=== PATIENT | male | born 1955 | race Hispanic/Latino ===

== ENCOUNTER 2019-10-21 14:47 | Inpatient (IN) | payer MEDICARE, MEDICAID ==
[~2019-10-21 14:47] MED LIST: Iopamidol-370 76% 500 ML 1 ML ONE
--- NOTE | 2019-10-21 14:59 | CT ---
Exam: CT brain PROVIDED CLINICAL HISTORY: Left-sided weakness COMPARISON: None FINDINGS: The ventricular system is normal in size and morphology. No evidence for intracranial hemorrhage or mass effect. Age-indeterminate lacunar infarction left ledesma radiata. The extracranial soft tissues and osseous structures demonstrate no evidence for an acute abnormality. IMPRESSION: No evidence for intracranial hemorrhage or mass effect. Findings discussed with the referring clinici salma 2:56 PM 10/21/2019.
[2019-10-21 15:04] LABS: #Basophils 0.1 thou/uL (0.0-0.2); #Eosinphils 0.2 thou/uL (0.0-0.7); #Lymphocytes 2.4 thou/uL (1.20-3.40); #Monocytes 0.7 thou/uL (0.11-0.59); #Neutrophils 4.4 thou/uL (1.40-6.50); %Basophils 0.7 % (0.0-1.0); %Eosinophils 2.7 % (0.0-10.0); %Lymphocytes 31.3 % (21.0-51.0); %Monocytes 8.9 % (0.0-10.0); %Neutrophils 56.5 % (42.0-75.0); Hemoglobin 13.7 g/dL (14.0-18.0); Mean Corpuscular HGB CONC 34.3 g/dL (32.0-36.0); Mean Corpuscular Hemoglobin 31.7 pg (27.0-31.0); Mean Corpuscular Volume 92.5 fL (78.0-98.0); Mean Platelet Volume 9.3 fL (7.4-10.4); Platelet Count 252 thou/uL (130-400); RBC Distribution Width 12.3 % (11.5-14.5); Red Blood Cell (RBC) Count 4.34 mill/uL (4.70-6.10); White Blood Cell (WBC) Count 7.8 thou/uL (4.8-10.8)
[2019-10-21 15:11] LABS: PTT 36.4 SEC (22.9-36.1); Prothrombin Time 13.2 sec (12.0-14.7)
[2019-10-21] MEDS ORDERED: Labetalol HCl 100 MG/20 ML VIAL ONE ×2 (15:11→15:36)
--- NOTE | 2019-10-21 15:15 | CT ---
EXAM: CT angiogram great vessels neck with IV contrast and three-dimensional reconstructions CT angiogram brain with IV contrast and three-dimensional reconstructions PROVIDED CLINICAL HISTORY: Left-sided weakness COMPARISON: None FINDINGS: There is a normal three-vessel configuration of the great vessels at the arch. The common carotid, internal carotid, subclavian and vertebral arteries demonstrate no evidence for s ignificant stenosis. There is a focal, moderate weblike stenosis involving the distal left M1 segment. There is no additio nal evidence for focal vessel stenosis, branch occlusion or aneurysm involving the intracranial circulation. IMPRESSION: Focal moderate weblike stenosis involving the distal left M1 segment. No large vessel occlusion. No s ignificant stenosis involving great vessels of the neck.
[2019-10-21 15:19] LABS: ALT (SGPT) 23 U/L (8-55); AST (SGOT) 11 U/L (5-34); Albumin 3.9 g/dL (3.4-4.8); Alkaline Phosphatase 68 U/L (40-110); Anion Gap 14 mmol/L (10-20); BUN (Urea Nitrogen) 31 mg/dL (8.4-25.7); Bilirubin, Total 0.6 mg/dL (0.2-1.2); Calc. Creatinine Clearance 0 mL/min (70-130); Calcium 9.2 mg/dL (7.8-10.44); Carbon Dioxide 25 mmol/L (23-31); Chloride 105 mmol/L (98-107); Estimated GFR-MDRD 44; Globulin 3.3 g/dL (2.4-3.5); Glucose 147 mg/dL (80-115); Potassium 4.2 mmol/L (3.5-5.1); Protein, Total 7.2 g/dL (5.8-8.1); Sodium 141 mmol/L (136-145)
--- NOTE | 2019-10-21 15:23 | RAD ---
EXAM: XR Chest 1 View Portable PROVIDED CLINICAL HISTORY: Weakness COMPARISON: None FINDINGS: Evaluation is limited by patient body habitus and portable technique. Elevation of the right hemidiap hragm of unknown chronicity. Enlargement of the cardiac silhouette. Atherosclerosis. Poor visualization of left hemidiaphragm. No evidence for pneumothorax. Right lung appears grossly clear. IMPRESSION: Cardiomegaly and atherosclerosis with possible left basilar pleural and/or parenchymal opacity.
[2019-10-21] MEDS ORDERED: niCARdipine 20MG In NaCl 20 MG/200 ML BAG ONE (16:16)
[2019-10-21] MEDS ORDERED: niCARdipine 25 MG in Sodium Chloride 0.9% 250 ML 250 ML IVPB PRN ×3 (17:45→19:53)
--- NOTE | 2019-10-21 17:48 | PDOC.HHP ---
Hospitalist HPI - History of Present Illness left sided weakness/slurred speech History of Present Illness: This is a 64 year old male with past medical history of diabetes, hypertension, who presented to the ER with slurred speech and arm weakness. Patient does not remember what happened today or why he came to the hospital. History was obtained from the daughter. The daughter states that she saw the patient walking in his room and then she noticed his speech became slurred and he was holding his left shoulder. They tried to ask if he was in pain but he did not answer and told his family members not to worry and it will go away. They reported some left sided weakness. Symptoms started around 1:30 pm. She stated that he was not confused and was oriented until EMS came. The patient denies any headaches but states that his left hand is numb. He does not know when this started. He denies blurry vision. Patient complains of burning with urination and having to pee every 15 minutes and is requesting a catheter. Per daughter patient is supposed to get prostate surgery on Wednesday. According to the daughter patient saw his artificial log machine operator Dr. Lui on Wednesday and and he was told he needed to resume his lipitor so she believes he probably was not compliant with his medications. ED Course: Patient presented with a BP of 210/140. He was noted by EMS to have facial droop and left arm weakness. He was given TPA in the emergency room due to NIH scale of 12. After TPA he was noted to have some improvement in his weakness and less confusion per ED staff. CT head showed no acute disease. CTA showed stenosis in the M1 segment. Patient was noted to have TITUS with creatinine of 1.58. Troponin was 0.044, CKMB negative. EKG showed some new T wave inversions per ED staff but I do not have access to it. Hospitalist ROS - Review of Systems Constitutional: denies: fever, chills - Medication Medications: Metformin 1000 mg bid Benzonatate 200 mg tid prn for cough Lipitor 10 mg daily Oxybutynin 5 mg bid Glipizide XL 10 mg tablet bid Carvedilol 25 mg bid Celebrex 200 mg 1 tablet daily Losartan 50 mg bid Hospitalist History - Past Medical History Endocrine: reports: Diabetes - Past Surgical History Past Surgical History: reports: no pertinent history - Family History Other Family History: unknown - Social History Smoking Status: Former smoker (Smoked for 30 years) - Exam General Appearance: NAD, awake alert Eye: PERRL, anicteric sclera Eye - other findings: possible cataract left eye, difficult to tell in right since resisted openi ENT: normocephalic atraumatic, no oropharyngeal lesions Neck: no JVD Heart: RRR, no murmur, no gallops, no rubs Respiratory: CTAB, no wheezes, no rales, no ronchi Gastrointestinal: soft, non-tender, distended Extremities: no cyanosis, no clubbing, no edema Skin: normal turgor, no lesions, no rashes Neurological: cranial nerve grossly intact Neurological - other findings: left arm and left leg Dec ROM. Poor effort with hand squeezing. Musculoskeletal: normal tone, normal strength, no muscle wasting Psychiatric: normal affect, A&O x 3 Psychiatric - other findings: Oriented to month and year Hospitalist Results - Labs Result Diagrams: 10/21/19 14:54 10/21/19 14:54 Lab results: WBC 7.8 thou/uL (4.8-10.8) 10/21/19 14:54 Hgb 13.7 g/dL (14.0-18.0) L 10/21/19 14:54 Hct 40.1 % (42.0-52.0) L 10/21/19 14:54 MCV 92.5 fL (78.0-98.0) 10/21/19 14:54 Plt Count 252 thou/uL (130-400) 10/21/19 14:54 Neutrophils % 56.5 % (42.0-75.0) 10/21/19 14:54 Sodium 141 mmol/L (136-145) 10/21/19 14:54 Potassium 4.2 mmol/L (3.5-5.1) 10/21/19 14:54 Chloride 105 mmol/L (98-107) 10/21/19 14:54 Carbon Dioxide 25 mmol/L (23-31) 10/21/19 14:54 BUN 31 mg/dL (8.4-25.7) H 10/21/19 14:54 Creatinine 1.58 mg/dL (0.7-1.3) H 10/21/19 14:54 Glucose 147 mg/dL (80-115) H 10/21/19 14:54 Calcium 9.2 mg/dL (7.8-10.44) 10/21/19 14:54 Total Bilirubin 0.6 mg/dL (0.2-1.2) 10/21/19 14:54 AST 11 U/L (5-34) 10/21/19 14:54 ALT 23 U/L (8-55) 10/21/19 14:54 Alkaline Phosphatase 68 U/L (40-110) 10/21/19 14:54 Creatine Kinase 59 U/L (30-200) 10/21/19 14:54 CK-MB (CK-2) 1.0 ng/mL (0-6.6) 10/21/19 14:54 Troponin I 0.044 ng/mL (< 0.028) H 10/21/19 14:54 Serum Total Protein 7.2 g/dL (5.8-8.1) 10/21/19 14:54 Albumin 3.9 g/dL (3.4-4.8) 10/21/19 14:54 - EKG Interpretation EKG: afib Hospitalist H&P A/P - Plan Plan: Chest X ray 10/20: cardiomegaly and atherosclerosis with left basilar pleural and parenchymal opacity CTA: focal moderate weblike stenosis involving the distal M1 segment Chest X ray: cardiomegaly and atherosclerosis with left basilar and parenchymal opacity This is a 64 year old male who presented with left sided weakness, s/p TPA #Possible stroke s/p TPA #Hypertensive emergency - CT head negative, CTA showed focal moderate weblike stenosis involving distal M1 segment. Was given TPA with improvement - will continue to monitor in ICU - maintain BP < 180/105 on nicardipine drip - PT/OT/speech - neuro consult - MRI brain, ECHO - check TSH in am - hold outpatient losartan and coreg for now #Afib #Type II NSTEMI - hold any anticoagulation for now - on coreg as outpatient, unclear if old or new - has elevated troponin and EKG changes per ED staff, will check ECO and repeat EKG tomorrow Dysuria - check UA, bladder scan - consider resuming oxybutynin if UA negative TITUS - creatinine up to 1.58. Likely from uncontrolled HTN - check UA Anemia - Hb 13.7, stable will monitor Type II Diabetes - insulin sliding scale - hold glipizide and metformin Code status: assume full code for now, no HCP on file
[2019-10-21 18:42] LABS: Troponin I 0.033 ng/mL (< 0.028)
[2019-10-21] MEDS ORDERED: Dextrose 50% Abboject 50 ML SYRINGE SLOW IVP PRN (18:44)
[2019-10-21] MEDS ORDERED: Dextrose 5% in Water 1,000 ML IV PRN (18:44)
[2019-10-21] MEDS ORDERED: Communication Order-Pharmacy FS SCH (18:59)
[2019-10-21] MEDS ORDERED: hydrALAZINE 20 MG/ML VIAL SLOW IVP PRN (18:59)
[2019-10-21] MEDS ORDERED: NO ANTITHROMBOTICS FS SCH (19:15)
[2019-10-21] MEDS ORDERED: niCARdipine 25 MG in Sodium Chloride 0.9% 250 ML 240 ML IVPB PRN (19:54)
[2019-10-21 20:30] LABS: Bacteria/HPF None Seen HPF (None Seen); RBC/HPF 0-3 HPF (0-3); Squamous Epithelial None Seen HPF (0-3); WBC/HPF 0-3 HPF (0-3)
[2019-10-21 21:44] VITALS: BMI 29.7
[2019-10-22] MEDS ORDERED: Diltiazem 125 MG in Sodium Chloride 0.9% 100 ML IVPB SCH (00:30)
[2019-10-22] MEDS ORDERED: Prevnar 13-Val Conj/PF 0.5 ML SYRINGE IM ONE (09:00)
[2019-10-22] MEDS ORDERED: Oxybutynin 5 MG TAB PO SCH (09:00)
[2019-10-22] MEDS ORDERED: Carvedilol 25 MG TAB PO SCH ×3 (09:30→23:15)
[2019-10-22] MEDS: Losartan 25 MG TAB PO SCH (10:02)
--- NOTE | 2019-10-22 11:09 | CON ---
DATE OF CONSULTATION: PRIMARY CONTINUOUS IMPROVEMENT COORDINATOR: Dr. John Lui. REASON FOR CONSULTATION: Abnormal EKG, atrial fibrillation, recent stroke. HISTORY OF PRESENT ILLNESS: Mr. Willson is a very pleasant 64-year-old gentleman. The patient recently seen in evaluated for possible upcoming surgery for enlarged prostate. The patient has had history of severe frequency and urgency. The patient came in last night with acute stroke symptoms with left-sided weakness. The patient received tPA with some improvement in his symptoms. He also had slurred speech. The patient is feeling better today, but however during this hospitalization, it has been noted that he has paroxysmal atrial fibrillation, which is a new diagnosis. No chest pain or pressure. MEDICATIONS: At home: 1. Glipizide. 2. Carvedilol. 3. Terazosin. 4. Metformin. 5. Losartan. 6. Lipitor. 7. Oxybutynin. PAST HISTORY: 1. Hypertension. 2. Diabetes. 3. Chronic kidney disease, stage I. SURGICAL HISTORY: Colonoscopy. SOCIAL HISTORY: History of smoking. Former smoker, not currently. REVIEW OF SYSTEMS: CONSTITUTIONAL: No significant weight gain or loss. VISION: No changes. HEARING: No changes. PULMONARY: No cough or wheezing. GASTROINTESTINAL: No nausea, vomiting, diarrhea. SKIN: No rashes. NEUROLOGIC: As outlined above. PHYSICAL EXAMINATION: GENERAL: This is a pleasant 64-year-old gentleman in no distress. VITAL SIGNS: Blood pressure 154/83, pulse 76, regular with frequent PACs on the monitor. NECK: Veins normal. Carotid normal upstrokes. LUNGS: Clear. CARDIAC: Normal S1, normal S2. ABDOMEN: Soft. Nontender. EXTREMITIES: Warm. There are no clubbing or cyanosis. There is no edema. The patient can move his left arm, but there is decreased paper conservator and strength. The speech appears normal at the present time. ASSESSMENT: 1. Stroke, suspect cardioembolic. 2. Diabetes. 3. Hypertension. PLAN: 1. He received tPA. 2. Consideration for anticoagulation. I would hold off for now since he received tPA, but I would suspect by tomorrow he could be anticoagulated. Dr. Lui will be here tomorrow to further address that issue. 3. Scheduled for MRI today. Certainly would not anticoagulate . There has been no evidence of any bleeding. I think if the patient did have evidence of bleeding we would certainly not anticoagulate acutely. Job ID: [id number]
--- NOTE | 2019-10-22 12:17 | MRI ---
EXAM: MRI Brain WO Con PROVIDED CLINICAL HISTORY: Left sided weakness COMPARISON: CT brain 10/21/2019 FINDINGS: The ventricular system remains normal in size and morphology. There is restricted diffusion involving the right anterior parietal region in the distribution of the posterior right MCA. There is a lacunar infarction involving the left centrum semiovale which may be subacute. Several small foci of restricted diffusion are seen in the right occipital region no additional restricted diffusion is evident. Signal alteration in the micheline compatible with chronic microvascular ischemic change. Chronic lacunar infarction right thalamus. Hypointensity on the gradient sequence involving the region of restricted diffusion involving the right parietal region may reflect petechial hemorrhage. The region al major vascular structures demonstrate appropriate flow voids. Mucus retention cyst left maxillary sinus. Extracranial soft tissues and calvarial marrow signal appear normal. IMPRESSION: 1. Recent infarction involving the posterior distribution of the right MCA with associated petechial hemorrhage. 2. Subacute lacunar infarction left centrum semiovale. 3. Small foci of acute cortical infarction are seen involving the right occipital cortex. 4. Different vascular distributions of the infarctions suggest the possibility of embolic phenomena.
--- NOTE | 2019-10-22 13:02 | PDOC.HOSPP ---
- Subjective Encounter Date: 10/22/19 Encounter Time: 11:30 Subjective: The patient states he still has some numbness on the left side. No headache or vision changes. He continues to report burning with urination and urinating every 15 minutes. He was told by his doctors there are no other medications they can give him - Objective Vital Signs & Weight: Vital Signs (12 hours) Temp Pulse Ox 10/22/19 12:00 98.7 F 10/22/19 08:00 98.5 F 99 10/22/19 04:00 98.2 F Weight Weight 185 lb 3.013 oz Most Recent Monitor Data Heart Rate from ECG 68 NIBP 161/88 NIBP BP-Mean 112 Respiration from ECG 15 SpO2 97 I&O: 10/21/19 10/22/19 10/23/19 06:59 06:59 06:59 Intake Total 114.6 170 Output Total 1450 Balance -1335.4 170 Result Diagrams: 10/21/19 14:54 10/21/19 14:54 Additional Labs: Accuchecks 10/22/19 10/21/19 10/21/19 00:05 18:03 14:53 POC Glucose 162 H 198 H 140 H Hospitalist ROS - Review of Systems Constitutional: denies: fever, chills - Medication Medications: Active Medications Generic Name Dose Route Start Last Admin Trade Name Stu PRN Reason Stop Dose Admin Diltiazem HCl 125 mg/ Sodium 125 mls @ 0 mls/hr 10/22/19 00:30 10/22/19 00:41 Chloride IVPB 125 mls INF GEOVANNI Administration Protocol Titrate Losartan Potassium 50 mg 10/22/19 09:00 10/22/19 10:02 Cozaar PO 50 mg DAILY GEOVANNI Administration Oxybutynin Chloride 5 mg 10/22/19 09:00 10/22/19 10:05 Ditropan PO 5 mg DAILY GEOVANNI Administration - Exam General Appearance: NAD, awake alert Eye: PERRL, anicteric sclera Neck: no JVD Heart: RRR, no murmur, no gallops, no rubs Respiratory: CTAB, no wheezes, no rales, no ronchi Gastrointestinal: soft, non-tender, non-distended, normal bowel sounds Extremities: no cyanosis, no clubbing, no edema Skin: normal turgor, no lesions, no rashes Neurological: cranial nerve grossly intact, no new deficit Neurological - other findings: left arm and left leg weakness while lifting. Strength equal bilaterally Musculoskeletal: normal tone, normal strength, no muscle wasting Psychiatric: normal affect, normal behavior, A&O x 3, oriented to person Hosp A/P - Plan Consults: Palliative Care MRI brain: right MCA infarct with petechial hemorrhage. Lacunar infarct left centrum semiovale. Acute cortical infarction right occipital cortex. Likely embolic Chest X ray 10/20: cardiomegaly and atherosclerosis with left basilar pleural and parenchymal opacity CTA: focal moderate weblike stenosis involving the distal M1 segment Chest X ray: cardiomegaly and atherosclerosis with left basilar and parenchymal opacity This is a 64 year old male who presented with left sided weakness, s/p TPA # Right MCA and occipital lobe embolic stroke - CT head negative, CTA showed focal moderate weblike stenosis involving distal M1 segment. Was given TPA with improvement - MRI brain shows right MCA infarct with petechial hemorrhage, acute cortical infarction right occipital lobe and lacunar infarct. Will repeat CT head this afternoon - ECHO is pending. Neurology has been consulted, pending recommendations #Hypertensive emergency - patient is off nicardipine drip. Resumed coreg and losartan - TSH Pending - patient is likely noncompliant per family #Afib - new onset #Type II NSTEMI - hold any anticoagulation for now. Cardiology has been consulted, recommending possibly starting anticoagulation tomorrow Dysuria - UA negative - on oxybutynin 5 mg bid - will try pyridium for bladder spasm - patient was scheduled for prostate surgery Wednesday. Contacted admissions advisor urologist who stated to contact Jose in am but agreed should be postponed TITUS - creatinine up to 1.58. Likely from uncontrolled HTN. Repeat BMP pending - UA unremarkable Anemia - Hb 13.7, stable will monitor Type II Diabetes - insulin sliding scale - hold glipizide and metformin
[2019-10-22] MEDS: HumaLOG 300 UNITS/3 ML VIAL SC PRN ×3 (13:54→21:33)
--- NOTE | 2019-10-22 14:16 | CT ---
Exam: CT brain PROVIDED CLINICAL HISTORY: Stroke COMPARISON: 10/21/2019 CT, 10/22/2019 MRI FINDINGS: The ventricular system is normal in size and morphology. No evidence for intracranial hemorrhage or mass effect. Interval loss of romero-white differentiation in the right parietal region compatible with recently described infarction by MRI. IMPRESSION: No evidence for intracranial hemorrhage or mass effect.
[2019-10-22] MEDS: Phenazopyridine HCl 97.5 MG TABLET PO SCH ×2 (14:24→18:38)
[2019-10-22] MEDS: Labetalol HCl 100 MG/20 ML VIAL SLOW IVP PRN ×2 (15:03→20:45)
--- NOTE | 2019-10-22 15:56 | CON ---
DATE OF CONSULTATION: 10/22/2019 NEUROLOGY CONSULTATION REASON FOR CONSULTATION: Left-sided weakness and slurred speech. HISTORY OF PRESENT ILLNESS: Mr. Todd Willson is a 64-year-old male with medical history significant for diabetes, hypertension, presents to the hospital with an episode of slurred speech and left-sided weakness. The patient does not remember the event, so history is taken from documentation of the medical records and the daughter. Per daughter , she noticed speech was slurred and he was holding his left shoulder and was somewhat confused. She recalled the symptoms started around 1:30 p.m. on 10/21/2019 and she called 911. When EMS came, he was totally alert and oriented. The patient denies nausea, vomiting, headache, dizziness, loss of vision, blurred vision, chest pain, or abdominal pain associated with the episode. He saw his talent development director, Dr. Lui on Wednesday and and was asked to resume his Lipitor. There is a concern that he may not be compliant with the medications. In the emergency room, he was given tPA. The NIH Scale was 12. There was improvement after the tPA. CT head did not show any acute intracranial pathology. CT angiogram showed stenosis in the M1 segment. MRI of the brain reviewed which was consistent with acute stroke in the right middle cerebral artery territory and also there is an occipital infarct. History and exam conducted with the help of [place] interpretor. REVIEW OF SYSTEMS: All 14 systems were reviewed and were negative except for symptoms mentioned in the HPI. PAST MEDICAL HISTORY: Diabetes, hypertension. PAST SURGICAL HISTORY: None. FAMILY HISTORY: No family history of stroke. SOCIAL HISTORY: The patient lives alone. He is a former smoker, smoked for 30 years. - Objective Vital Signs & Weight: Vital Signs (12 hours) Temp Pulse Ox 10/22/19 12:00 98.7 F 10/22/19 08:00 98.5 F 99 10/22/19 04:00 98.2 F Weight Weight 185 lb 3.013 oz Most Recent Monitor Data Heart Rate from ECG 68 NIBP 161/88 NIBP BP-Mean 112 Respiration from ECG 15 SpO2 97 I&O: 10/21/19 10/22/19 10/23/19 06:59 06:59 06:59 Intake Total 114.6 170 Output Total 1450 Balance -1335.4 170 10/21/19 14:54 Additional Labs: Accuchecks 10/22/19 10/21/19 10/21/19 00:05 18:03 14:53 POC Glucose 162 H 198 H 140 H - Medication Medications: Active Medications Generic Name Dose Route Start Last Admin Trade Name Stu PRN Reason Stop Dose Admin Diltiazem HCl 125 mg/ Sodium 125 mls @ 0 mls/hr 10/22/19 00:30 10/22/19 00:41 Chloride IVPB 125 mls INF GEVOANNI Administration Protocol Titrate Losartan Potassium 50 mg 10/22/19 09:00 10/22/19 10:02 Cozaar PO 50 mg DAILY GEOVANNI Administration Oxybutynin Chloride 5 mg 10/22/19 09:00 10/22/19 10:05 Ditropan PO 5 mg DAILY GEOVANNI Administration - Exam General Appearance: NAD, awake alert Eye: PERRL, anicteric sclera Neck: no JVD Heart: RRR, no murmur, no gallops, no rubs Respiratory: CTAB, no wheezes, no rales, no ronchi Gastrointestinal: soft, non-tender, non-distended, normal bowel sounds Extremities: no cyanosis, no clubbing, no edema Skin: normal turgor, no lesions, no rashes NEUROLOGIC: Mental status: The patient is alert and oriented to person, place, and time. Speech is clear. Cranial nerves 2 through 12 intact except dysarthria and left facial droop. Motor: Muscle tone and bulk is normal. Strength 5/5 in the right upper and lower extremities, 3/5 in the left upper and lower extremities. Cerebellar: Slow on the left secondary to weakness. Sensory: Withdraws to pinprick bilaterally, left less than right. Gait not tested because of the patient's safety reasons. ASSESSMENT AND PLAN: Mr. Todd Willson is a 64-year-old male with a right middle cerebral artery stroke, status post tPA, consulted for stroke management. MRI brain reviewed which was consistent with acute infarction in the right middle cerebral artery territory CT angiogram showed focal moderate stenosis involving the distal M1 segment. Repeat head CT did not show any acute intracranial pathology. Neuro checks every 2 hours. Maintain blood pressure less than 180 to 105. Echocardiogram was reviewed which was essentially unremarkable. CMP is unremarkable. Permissive control of blood pressure at this time. Start aspirin 24 hours post tpa and statin for secondary stroke prevention. PT/OT/speech. Continue home medications and medical management per primary team. We will continue to follow. Thank you for the consult. Job ID: [id number] QUEENIE
[2019-10-22 15:58] LABS: Band 5 % (5-11); Hemoglobin 14.4 g/dL (14.0-18.0); Lymphocytes 17 % (21-51); MDiff Complete? YES; Mean Corpuscular HGB CONC 33.7 g/dL (32.0-36.0); Mean Corpuscular Hemoglobin 31.4 pg (27.0-31.0); Mean Corpuscular Volume 93.2 fL (78.0-98.0); Mean Platelet Volume 9.1 fL (7.4-10.4); Monocytes 3 % (0-10); Neutrophil 65 % (42-75); Platelet Count 249 thou/uL (130-400); Platelet Morphology Comment Appears Adequate; Polychromasia SLIGHT = 2-3 cells (100X) (0-2/hpf); RBC Distribution Width 12.3 % (11.5-14.5); Reactive Lymphocytes 10 % (0-10); Red Blood Cell (RBC) Count 4.59 mill/uL (4.70-6.10); White Blood Cell (WBC) Count 9.2 thou/uL (4.8-10.8)
[2019-10-22 15:59] LABS: ALT (SGPT) 22 U/L (8-55); AST (SGOT) 14 U/L (5-34); Albumin 3.8 g/dL (3.4-4.8); Alkaline Phosphatase 65 U/L (40-110); Anion Gap 15 mmol/L (10-20); BUN (Urea Nitrogen) 23 mg/dL (8.4-25.7); Bilirubin, Total 0.8 mg/dL (0.2-1.2); Calc. Creatinine Clearance 62 mL/min (70-130); Carbon Dioxide 23 mmol/L (23-31); Chloride 103 mmol/L (98-107); Estimated GFR-MDRD 50; Globulin 3.4 g/dL (2.4-3.5); Glucose 257 mg/dL (80-115); Protein, Total 7.2 g/dL (5.8-8.1); Sodium 137 mmol/L (136-145)
[2019-10-22 16:10] LABS: Troponin I 0.362 ng/mL (< 0.028)
[2019-10-22] MEDS: Oxybutynin 5 MG TAB PO SCH (20:45)
[2019-10-22] MEDS: Atorvastatin Calcium 10 MG TAB PO SCH (20:45)
[2019-10-22] MEDS: Terazosin HCl 5 MG CAP PO SCH (20:45)
[2019-10-22] MEDS ORDERED: Aspirin 81 mg Enteric Coated Tablet PO SCH (23:30)
[2019-10-23 06:15] LABS: Anion Gap 13 mmol/L (10-20); BUN (Urea Nitrogen) 28 mg/dL (8.4-25.7); Calc. Creatinine Clearance 46 mL/min (70-130); Calcium 8.6 mg/dL (7.8-10.44); Carbon Dioxide 26 mmol/L (23-31); Chloride 102 mmol/L (98-107); Estimated GFR-MDRD 36; Glucose 221 mg/dL (80-115); Potassium 3.7 mmol/L (3.5-5.1); Sodium 137 mmol/L (136-145)
[2019-10-23] MEDS: HumaLOG 300 UNITS/3 ML VIAL SC PRN ×4 (06:26→21:20)
[2019-10-23 06:31] LABS: Hemoglobin 13.4 g/dL (14.0-18.0); Mean Corpuscular HGB CONC 32.5 g/dL (32.0-36.0); Mean Corpuscular Hemoglobin 30.1 pg (27.0-31.0); Mean Corpuscular Volume 92.7 fL (78.0-98.0); Mean Platelet Volume 9.1 fL (7.4-10.4); Platelet Count 234 thou/uL (130-400); RBC Distribution Width 12.4 % (11.5-14.5); Red Blood Cell (RBC) Count 4.44 mill/uL (4.70-6.10); White Blood Cell (WBC) Count 8.7 thou/uL (4.8-10.8)
[2019-10-23 06:33] LABS: Band 2 % (5-11); Eosinophils 1 % (0-10); Lymphocytes 30 % (21-51); MDiff Complete? YES; Monocytes 2 % (0-10); Neutrophil 65 % (42-75)
[2019-10-23] MEDS ORDERED: Carvedilol 25 MG TAB PO SCH (07:00)
[2019-10-23] MEDS: Phenazopyridine HCl 97.5 MG TABLET PO SCH ×3 (08:49→17:06)
[2019-10-23] MEDS: Losartan 25 MG TAB PO SCH (08:49)
[2019-10-23] MEDS: Oxybutynin 5 MG TAB PO SCH ×2 (08:49→21:19)
[2019-10-23] MEDS: Aspirin 81 mg Enteric Coated Tablet PO SCH (08:49)
--- NOTE | 2019-10-23 11:02 | ULT ---
Bilateral renal ultrasound CLINICAL INDICATION: Elevated creatinine COMPARISON: 04/13/2018 FINDINGS: Right kidney: Anechoic structure seen in the superior pole measuring 2.5 cm. Few linear echogenic are as are present which could represent mild septations or possibly artifactual. This does demonstrate posterior acoustic enhancement and likely represents a cyst. A cyst was seen right kidney on prior st udy in 2018 measuring 2.1 cm. There is a circumscribed anechoic structure at the inferior pole right kidney measuring 1.7 cm which is stable compared to prior study in 2018 and suggestive of a cys t. No hydronephrosis or calculus, or perinephric fluid collection is seen on the right.The right kidney measures 10.5 cm x 5.6 cm. Left kidney: There are 3 separate anechoic cystic lesions seen in the left kidney largest in the midp ortion left kidney measuring 2.3 cm. Findings are most compatible with left renal cysts which are stable compared to prior exam. No hydronephrosis, renal calculus, or perinephric fluid collection is seen on the left.The left kidney measures 11.6 cm x 5.7 cm. Urinary bladder: Mostly decompressed and not well evaluated on this exam but is grossly normal in concha earance for degree of distention. IMPRESSION: 1. Bilateral renal cysts. Although there is suggestion of increased linear echogenic area within the superior pole right renal cyst, findings are probably artifactual as opposed to septations. This cystic lesion was better visualized on prior study in 2018 and did demonstrate Tetris 6 on that exam most compatible with a simple cyst. 2. No evidence of hydronephrosis.
[2019-10-23] MEDS: Amlodipine 5 MG TAB PO SCH ×2 (11:37→21:20)
--- NOTE | 2019-10-23 11:57 | PDOC.HOSPP ---
- Subjective Encounter Date: 10/23/19 Subjective: Patient is alert, awake and following commands. - Objective Vital Signs & Weight: Vital Signs (12 hours) Temp Pulse Resp BP BP BP Pulse Ox 10/23/19 11:37 69 157/70 H 10/23/19 11:34 157/70 H 10/23/19 11:22 98.9 F 71 14 179/84 H 98 10/23/19 08:00 99 F 69 14 159/77 H 98 10/23/19 04:29 98.2 F 73 15 169/90 H 95 10/23/19 01:34 100.7 F H 73 22 H 149/69 H 94 L 10/23/19 00:33 93 L Weight Weight 182 lb 12.8 oz Most Recent Monitor Data Heart Rate from ECG 114 NIBP 163/96 NIBP BP-Mean 118 Respiration from ECG 28 SpO2 93 I&O: 10/22/19 10/23/19 10/24/19 06:59 06:59 06:59 Intake Total 114.6 990 Output Total 1450 400 Balance -1335.4 590 Result Diagrams: 10/23/19 05:32 10/23/19 05:32 Additional Labs: Accuchecks 10/23/19 10/22/19 10/22/19 05:48 19:42 17:49 POC Glucose 216 H 235 H 254 H 10/22/19 10/22/19 13:53 06:25 POC Glucose 174 H 157 H Radiology Reviewed by me: Yes EKG Reviewed by me: Yes Hospitalist ROS - Review of Systems Constitutional: denies: fever, chills, sweats, weakness, malaise, other Eyes: denies: pain, vision change, conjunctivae inflammation, eyelid inflammation, redness, other ENT: denies: ear pain, ear discharge, nose pain, nose discharge, nose congestion , mouth pain, mouth swelling, throat pain, throat swelling, other Cardiovascular: denies: chest pain, palpitations, orthopnea, paroxysmal noc. dyspnea, edema, light headedness, other Gastrointestinal: denies: nausea, vomiting, abdominal pain, diarrhea, constipation, melena, hematochezia, other Genitourinary: denies: dysuria, frequency, incontinence, hematuria, retention, other Neurological: reports: weakness, numbness, change in speech. denies: incoordination, confusion, seizures, other - Medication Medications: Active Medications Generic Name Dose Route Start Last Admin Trade Name Freq PRN Reason Stop Dose Admin Amlodipine Besylate 5 mg 10/23/19 09:00 10/23/19 11:37 Norvasc PO 5 mg BID GEOVANNI Administration Aspirin 81 mg 10/23/19 09:00 10/23/19 08:49 Ecotrin PO 81 mg DAILY GEOVANNI Administration Atorvastatin Calcium 10 mg 10/22/19 21:00 10/22/19 20:45 Lipitor PO 10 mg HS GEOVANNI Administration Diltiazem HCl 125 mg/ Sodium 125 mls @ 0 mls/hr 10/22/19 00:30 10/22/19 00:41 Chloride IVPB 125 mls INF GEOVANNI Administration Protocol Titrate Insulin Human Lispro 0 units 10/21/19 18:44 10/23/19 06:26 Humalog SC 2 unit .MILD SLIDING SCALE PRN Administration Mild Correctional Scale Insulin Human Lispro 0 units 10/22/19 21:02 10/22/19 21:33 Humalog SC 2 unit .BEDTIME SLIDING SC PRN Administration Bedtime Correctional Scale Labetalol HCl 10 mg 10/21/19 18:59 10/22/19 20:45 Normodyne SLOW IVP 10 mg Q10MIN PRN Administration SBP > 180 or DBP > 105 Oxybutynin Chloride 5 mg 10/22/19 21:00 10/23/19 08:49 Ditropan PO 5 mg BID GEOVANNI Administration Phenazopyridine HCl 97.5 mg 10/22/19 13:00 10/23/19 08:49 Azo Standard PO 97.5 mg PC GEOVANNI Administration Terazosin HCl 5 mg 10/22/19 21:00 10/22/19 20:45 Hytrin PO 5 mg HS GEOVANNI Administration - Exam General Appearance: awake alert Eye: PERRL, anicteric sclera ENT: normocephalic atraumatic, no oropharyngeal lesions, moist mucosa Neck: supple, symmetric, no JVD Heart: RRR, no murmur, no gallops Respiratory: CTAB Gastrointestinal: soft Extremities: no cyanosis, no clubbing, no edema Skin: normal turgor, no lesions, no rashes Neurological: normal sensation to touch, speech deficit Neurological - other findings: subtle left facial droop left hemiparesis 3/5 Musculoskeletal: normal tone, no muscle wasting Psychiatric: normal affect, normal behavior, A&O x 3, oriented to person, oriented to place, oriented to time Hosp A/P (1) Stroke Code(s): I63.9 - CEREBRAL INFARCTION, UNSPECIFIED Status: Acute (2) Atrial fibrillation Code(s): I48.91 - UNSPECIFIED ATRIAL FIBRILLATION Status: Acute - Plan old records reviewed/req, PT/OT, DVT proph w/SCDs Consults: other ([facility]) 64 year old with left sided weakness S/P TPA. Clinically improving. MRI Brain reviewed which was consistent with RMCA stroke. Echocardiogram did not show any thrombus or PFO. CTA showed moderate stenosis M1 sign. Telemetry revealed atrial fibrillation. Cardiology on board. ASA resumed yesterday 24 hours post tpa. Statin for secondary stroke prevention. Neurochecks every 4 hours. Continue home medications. PT/OT/Speech. Continue medical management per primary team and cardiology.
--- NOTE | 2019-10-23 14:36 | PDOC.HOSPP ---
- Subjective Encounter Date: 10/23/19 Encounter Time: 12:45 Subjective: The patient states he no longer has numbness in his left hand or leg. No headache. His urinary frequency has improved and is now urinating every hour instead of every 15 minutes. Bladder spasms have improved - Objective Vital Signs & Weight: Vital Signs (12 hours) Temp Pulse Pulse Pulse Resp BP BP 10/23/19 11:37 69 157/70 H 10/23/19 11:34 10/23/19 11:22 98.9 F 71 14 10/23/19 09:25 68 65 158/84 H 10/23/19 08:00 99 F 69 14 10/23/19 04:29 98.2 F 73 15 BP BP Pulse Ox 10/23/19 11:37 10/23/19 11:34 157/70 H 10/23/19 11:22 179/84 H 98 10/23/19 09:25 174/81 H 10/23/19 08:00 159/77 H 98 10/23/19 04:29 169/90 H 95 Weight Weight 182 lb 12.8 oz Most Recent Monitor Data Heart Rate from ECG 114 NIBP 163/96 NIBP BP-Mean 118 Respiration from ECG 28 SpO2 93 I&O: 10/22/19 10/23/19 10/24/19 06:59 06:59 06:59 Intake Total 114.6 990 Output Total 1450 400 Balance -1335.4 590 Result Diagrams: 10/23/19 05:32 10/23/19 05:32 Additional Labs: Accuchecks 10/23/19 10/23/19 10/22/19 12:14 05:48 19:42 POC Glucose 359 H 216 H 235 H 10/22/19 17:49 POC Glucose 254 H Hospitalist ROS - Review of Systems Constitutional: denies: fever, chills Respiratory: denies: cough, dry Gastrointestinal: denies: vomiting, hematochezia Genitourinary: denies: frequency - Medication Medications: Active Medications Generic Name Dose Route Start Last Admin Trade Name Freq PRN Reason Stop Dose Admin Amlodipine Besylate 5 mg 10/23/19 09:00 10/23/19 11:37 Norvasc PO 5 mg BID GEOVANNI Administration Aspirin 81 mg 10/23/19 09:00 10/23/19 08:49 Ecotrin PO 81 mg DAILY GEOVANNI Administration Atorvastatin Calcium 10 mg 10/22/19 21:00 10/22/19 20:45 Lipitor PO 10 mg HS GEOVANNI Administration Diltiazem HCl 125 mg/ Sodium 125 mls @ 0 mls/hr 10/22/19 00:30 10/22/19 00:41 Chloride IVPB 125 mls INF GEOVANNI Administration Protocol Titrate Insulin Human Lispro 0 units 10/21/19 18:44 10/23/19 12:43 Humalog SC 6 unit .MILD SLIDING SCALE PRN Administration Mild Correctional Scale Insulin Human Lispro 0 units 10/22/19 21:02 10/22/19 21:33 Humalog SC 2 unit .BEDTIME SLIDING SC PRN Administration Bedtime Correctional Scale Labetalol HCl 10 mg 10/21/19 18:59 10/22/19 20:45 Normodyne SLOW IVP 10 mg Q10MIN PRN Administration SBP > 180 or DBP > 105 Oxybutynin Chloride 5 mg 10/22/19 21:00 10/23/19 08:49 Ditropan PO 5 mg BID GEOVANNI Administration Phenazopyridine HCl 97.5 mg 10/22/19 13:00 10/23/19 12:42 Azo Standard PO 97.5 mg PC GEOVANNI Administration Terazosin HCl 5 mg 10/22/19 21:00 10/22/19 20:45 Hytrin PO 5 mg HS GEOVANNI Administration - Exam General Appearance: NAD, awake alert Eye: PERRL, anicteric sclera ENT: normocephalic atraumatic, no oropharyngeal lesions Neck: supple, no JVD Heart: RRR, no murmur, no gallops, no rubs Respiratory: CTAB, no wheezes, no rales, no ronchi Gastrointestinal: soft, non-tender, non-distended, normal bowel sounds Extremities: no cyanosis, no clubbing, no edema Skin: normal turgor, no lesions, no rashes Neurological: cranial nerve grossly intact, normal sensation to touch, no focal deficits, no new deficit Neurological - other findings: LUE 4/5, LLE 4/5, RUE 5/5, RLE 5/5 Musculoskeletal: normal tone, normal strength, no muscle wasting Psychiatric: A&O x 3 Hosp A/P - Plan MRI brain: right MCA infarct with petechial hemorrhage. Lacunar infarct left centrum semiovale. Acute cortical infarction right occipital cortex. Likely embolic Chest X ray 10/20: cardiomegaly and atherosclerosis with left basilar pleural and parenchymal opacity CTA: focal moderate weblike stenosis involving the distal M1 segment Chest X ray: cardiomegaly and atherosclerosis with left basilar and parenchymal opacity Renal US: bilateral renal cysts. 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 Was given TPA with improvement - MRI brain shows right MCA infarct with petechial hemorrhage, acute cortical infarction right occipital lobe and lacunar infarct. Repeat CT head 10/21 showed no hemorrhage - ECHO showed no thrombus. - started aspirin 81 mg daily. Plan to repeat CT head in the am, if negative then start anticoagulation tomorrow #Hypertensive emergency - patient is off nicardipine drip. Continue coreg 50 mg bid, d/c losartan due to worsening creatinine Acute Kidney Injury - creatinine up to 1.91. Renal US showed bilateral renal cysts, no hydronephrosis - discontinued losartan. UA normal - will repeat BMP tomorrow #Afib - new onset #Type II NSTEMI - hold any anticoagulation for now. Per neurology consider starting anticoagulation tomorrow - TSH was low, will repeat TSH and free T4 tomorrow - continue coreg Dysuria - improved - UA negative - on oxybutynin 5 mg bid. Continue pyridium prn for bladder spasm - urologic procedure to be postponed - will try pyridium for bladder spasm Anemia - Hb 13.7, stable will monitor Type II Diabetes - insulin sliding scale - hold glipizide and metformin
[2019-10-23] MEDS: Polyethylene Glycol 3350 17 GM Packet PO PRN (17:06)
[2019-10-23] MEDS: Carvedilol 25 MG TAB PO SCH (17:06)
[2019-10-23] MEDS: Atorvastatin Calcium 10 MG TAB PO SCH (21:19)
[2019-10-23] MEDS: Terazosin HCl 5 MG CAP PO SCH (21:19)
[2019-10-23] MEDS: Senokot S 8.6-50 MG TAB PO SCH (21:19)
[2019-10-24 05:33] LABS: Anion Gap 13 mmol/L (10-20); BUN (Urea Nitrogen) 21 mg/dL (8.4-25.7); Calc. Creatinine Clearance 68 mL/min (70-130); Calcium 8.7 mg/dL (7.8-10.44); Carbon Dioxide 24 mmol/L (23-31); Chloride 104 mmol/L (98-107); Estimated GFR-MDRD 57; Glucose 211 mg/dL (80-115); Potassium 3.6 mmol/L (3.5-5.1); Sodium 137 mmol/L (136-145)
[2019-10-24] MEDS: HumaLOG 300 UNITS/3 ML VIAL SC PRN ×3 (05:46→17:40)
[2019-10-24 05:53] LABS: Free T4 (Free Thyroxine) 1.46 ng/dL (0.70-1.48)
[2019-10-24 05:58] LABS: Thyroid Stimulating Hormone 0.1337 uIU/mL (0.35-4.94)
[2019-10-24 07:13] LABS: Hemoglobin 14.5 g/dL (14.0-18.0); Mean Corpuscular Hemoglobin 31.1 pg (27.0-31.0); Mean Corpuscular Volume 91.7 fL (78.0-98.0); Mean Platelet Volume 9.7 fL (7.4-10.4); Platelet Count 219 thou/uL (130-400); RBC Distribution Width 12.1 % (11.5-14.5); Red Blood Cell (RBC) Count 4.65 mill/uL (4.70-6.10)
[2019-10-24 08:24] LABS: Band 2 % (5-11); Eosinophils 1 % (0-10); Lymphocytes 16 % (21-51); MDiff Complete? YES; Monocytes 4 % (0-10); Neutrophil 72 % (42-75); Platelet Morphology Comment Appears Adequate; RBC Morphology Normal; Reactive Lymphocytes 4 % (0-10)
--- NOTE | 2019-10-24 09:04 | CT ---
HEAD CT WITHOUT CONTRAST: HISTORY: Right MCA stroke. Reevaluate hemorrhage. COMPARISON: 10/22/2019. FINDINGS: Hemorrhage: No intraparenchymal hemorrhage or extra-axial hematoma. Brain parenchyma: Expected evolutionary changes secondary to a subacute right MCA distribution infarc t. There is interval development of loss of romero-white matter differentiation involving the left occipital lobe suggesting new left DRAGLINE MECHANIC distribution infarct. Stable hypodensity involving the left co hawk radiata. Ventricular system: Ventricles and sulci are patent and symmetric. Calvarium: Intact. Sinuses and mastoid air cells: Adequate aeration. IMPRESSION: 1. Expected evolutionary changes involving the subacute right MCA distribution infarct. 2. Evidence of an acute infarct involving the left occipital lobe. 3. Results of study conveyed to Dr. Peña 10/24/2019 9:04 AM via [employer]. Transcribed Date/Time: 10/24/2019 9:41 AM
[2019-10-24] MEDS: Carvedilol 25 MG TAB PO SCH ×2 (09:40→17:40)
[2019-10-24] MEDS: Phenazopyridine HCl 97.5 MG TABLET PO SCH (09:41)
[2019-10-24] MEDS: Amlodipine 5 MG TAB PO SCH ×2 (09:41→21:51)
[2019-10-24] MEDS: Senokot S 8.6-50 MG TAB PO SCH ×2 (09:41→21:51)
[2019-10-24] MEDS: Oxybutynin 5 MG TAB PO SCH ×2 (09:41→21:50)
[2019-10-24] MEDS: Aspirin 81 mg Enteric Coated Tablet PO SCH (09:41)
[2019-10-24] MEDS ORDERED: Rivaroxaban 10 MG TAB PO SCH (10:45)
[2019-10-24 12:25] LABS: HEX PHOS LA Tube 1 42.6 SEC; HEX PHOS LA Tube 2 40.9 SEC; Hexagonal Phospholipid Neut 1.7 SEC (0-8.0); Protein C Activity 111 % (78-152)
[2019-10-24 12:48] LABS: PTT 35.3 SEC (22.9-36.1); Prothrombin Time 13.3 sec (12.0-14.7)
--- NOTE | 2019-10-24 13:05 | PDOC.HOSPP ---
- Subjective Encounter Date: 10/24/19 Subjective: NEUROLOGY PROGRESS NOTE Patient is alert and awake. He had new onset right homonymous heminopia - Objective Vital Signs & Weight: Vital Signs (12 hours) Temp Pulse Resp BP Pulse Ox 10/24/19 11:46 98 F 69 16 135/85 95 10/24/19 09:41 66 10/24/19 07:57 98.9 F 66 16 140/103 H 94 L 10/24/19 04:10 98.4 F 100 16 151/91 H 95 Weight Weight 183 lb 1.6 oz Most Recent Monitor Data Heart Rate from ECG 114 NIBP 163/96 NIBP BP-Mean 118 Respiration from ECG 28 SpO2 93 I&O: 10/23/19 10/24/19 10/25/19 06:59 06:59 06:59 Intake Total 990 Output Total 400 400 Balance 590 -400 Result Diagrams: 10/24/19 05:06 10/24/19 05:06 Additional Labs: Accuchecks 10/24/19 10/24/19 10/23/19 10:45 05:25 20:51 POC Glucose 271 H 237 H 245 H 10/23/19 16:41 POC Glucose 172 H Radiology Reviewed by me: Yes EKG Reviewed by me: Yes Hospitalist ROS - Review of Systems Constitutional: denies: fever, chills, sweats, weakness, malaise, other Eyes: reports: vision change ENT: denies: ear pain, ear discharge, nose pain, nose discharge, nose congestion , mouth pain, mouth swelling, throat pain, throat swelling, other Respiratory: denies: cough, dry, shortness of breath, hemoptysis, SOB with excertion, pleuritic pain, sputum, wheezing, other Cardiovascular: denies: chest pain, palpitations, orthopnea, paroxysmal noc. dyspnea, edema, light headedness, other Gastrointestinal: denies: nausea, vomiting, abdominal pain, diarrhea, constipation, melena, hematochezia, other Genitourinary: denies: dysuria, frequency, incontinence, hematuria, retention, other Musculoskeletal: denies: neck pain, shoulder pain, arm pain, back pain, hand pain, leg pain, foot pain, other Neurological: reports: weakness. denies: numbness, incoordination, change in speech, confusion, seizures, other - Medication Medications: Active Medications Generic Name Dose Route Start Last Admin Trade Name Freq PRN Reason Stop Dose Admin Amlodipine Besylate 5 mg 10/23/19 09:00 10/24/19 09:41 Norvasc PO 5 mg BID GEOVANNI Administration Aspirin 81 mg 10/23/19 09:00 10/24/19 09:41 Ecotrin PO 81 mg DAILY GEOVANNI Administration Atorvastatin Calcium 10 mg 10/22/19 21:00 10/23/19 21:19 Lipitor PO 10 mg HS GEOVANNI Administration Carvedilol 50 mg 10/23/19 17:00 10/24/19 09:40 Coreg PO 50 mg BID-WM GEOVANNI Administration Insulin Human Lispro 0 units 10/21/19 18:44 10/24/19 12:18 Humalog SC 4 unit .MILD SLIDING SCALE PRN Administration Mild Correctional Scale Insulin Human Lispro 0 units 10/22/19 21:02 10/23/19 21:20 Humalog SC 2 unit .BEDTIME SLIDING SC PRN Administration Bedtime Correctional Scale Labetalol HCl 10 mg 10/21/19 18:59 10/22/19 20:45 Normodyne SLOW IVP 10 mg Q10MIN PRN Administration SBP > 180 or DBP > 105 Polyethylene Glycol 17 gm 10/23/19 15:57 10/23/19 17:06 Miralax PO 17 gm DAILYPRN PRN Administration Constipation Senna/Docusate Sodium 1 tab 10/23/19 21:00 10/24/19 09:41 Senokot S PO 1 tab BID GEOVANNI Administration Terazosin HCl 5 mg 10/22/19 21:00 10/23/19 21:19 Hytrin PO 5 mg HS GEOVANNI Administration - Exam General Appearance: awake alert Eye: PERRL, anicteric sclera ENT: normocephalic atraumatic, no oropharyngeal lesions, moist mucosa Neck: supple, symmetric, no JVD Heart: RRR Respiratory: CTAB Gastrointestinal: soft Extremities: no cyanosis, no clubbing, no edema Skin: normal turgor, no lesions, no rashes Neurological - other findings: left facial droop, left sided weakness 4/5 Right homonymous heminopia Musculoskeletal: normal tone Psychiatric: normal affect, A&O x 3 Hosp A/P (1) Stroke Code(s): I63.9 - CEREBRAL INFARCTION, UNSPECIFIED Status: Acute (2) Atrial fibrillation Code(s): I48.91 - UNSPECIFIED ATRIAL FIBRILLATION Status: Acute - Plan 64 year old with left sided weakness S/P TPA. Recent MRI Brain showed acute right occipital lobe infarct and subacute RMCA infarct.. Repeat CT head showed no hemorrhage Plan to repeat CT head in the am and stat HCT if the neurologic status worsens to check for bleed. Echocardiogram did not show any thrombus or PFO. CTA showed moderate stenosis M1 sign. Telemetry revealed atrial fibrillation. Cardiology on board.Xarelto started today. ASA resumed yesterday 24 hours post tpa. Statin for secondary stroke prevention. Neurochecks every 4 hours. Continue home medications. PT/OT/Speech. Continue medical management per primary team and cardiology. Plan discussed with the primary hospitalist.
--- NOTE | 2019-10-24 13:11 | CON ---
DATE OF CONSULTATION: 10/23/2019 REASON FOR CONSULT: Lower urinary tract symptoms. CHIEF COMPLAINT: Frequency of urination, urgency. HISTORY OF PRESENT ILLNESS: This is a 64-year-old male, who I have been seeing recently over the past few weeks for longstanding lower urinary tract symptoms refractory to oral medications. He has previously failed Myrbetriq, oxybutynin, tamsulosin, finasteride. He recently underwent cystoscopy showing very obstructing prostate with secondary changes in the bladder and had transurethral resection of the prostate scheduled for this coming October 26. He was admitted over the weekend for stroke symptoms and is currently being worked up and treated for this. He did have atrial fibrillation over the weekend; however, has converted. He received tPA in the emergency room; however, currently anticoagulation is being held. While here in the hospital, he has continued to complain of urgency, frequency, straining, weak stream. He currently is not on any prostate or bladder medications while inpatient. He denies dysuria, hematuria, flank pain, nausea, vomiting, fevers, or chills. Urinalysis, October 20, 0 to 3 white blood cells, no bacteria. PAST MEDICAL HISTORY: Diabetes, hypertension, BPH. PAST SURGICAL HISTORY: None pertinent. FAMILY HISTORY: Reviewed, noncontributory. SOCIAL HISTORY: Former smoker. Currently, no substance abuse. CURRENT MEDICATIONS: He has been on tamsulosin at home; however, he is not currently taking this. Otherwise, no pertinent Urology medications. REVIEW OF SYSTEMS: Ten-point review of systems performed, negative except as mentioned above. PHYSICAL EXAMINATION: VITAL SIGNS: Afebrile, hypertensive. GENERAL: No acute distress. Conversant. HEENT: Eyes; extraocular movements intact. Sclerae nonicteric. HEENT: Head, normocephalic and atraumatic. NECK: Supple. Trachea midline. RESPIRATORY: Breathing unlabored. Symmetric chest expansion. ABDOMEN: Soft, nontender, nondistended. HEART: Currently, regular rate and rhythm. EXTREMITIES: No clubbing, cyanosis, or edema. SKIN: Warm and dry. NEUROLOGIC: Cranial nerves grossly intact, alert and orient x3. PSYCHIATRIC: Normal mood and affect. : Normal genital exam. Bladder nonpalpable, nontender. LABORATORY DATA: Creatinine 1.91, up from 1.42 yesterday. White count 8.7. ASSESSMENT AND PLAN: Lower urinary tract symptoms due to enlarged prostate, possibly exacerbated by recent cerebrovascular accident and history of diabetes. Restarting oxybutynin 10 mg twice daily and Myrbetriq 50 mg daily. He has been started on terazosin 5 mg by his form coverer and so I will hold off on tamsulosin. I will continue to follow and adjust therapy accordingly, I did advise him that retention would not be a complete surprise given his current situation, so we will need to keep this in mind and check, should his symptoms change. 70 mins spent with greater than 50% in direct patient care Job ID: [id number] MTDD
--- NOTE | 2019-10-24 16:37 | PDOC.HOSPP ---
- Subjective Encounter Date: 10/24/19 Encounter Time: 16:33 Subjective: The patient has no complaints. Per nursing staff, patient had difficulty looking at the right side overnight. CT head showed new occipital lobe infarct. Patient denies numbness in his arms or legs - Objective Vital Signs & Weight: Vital Signs (12 hours) Temp Pulse Resp BP Pulse Ox 10/24/19 15:28 98 F 79 16 143/90 H 96 10/24/19 11:46 98 F 69 16 135/85 95 10/24/19 09:41 66 10/24/19 08:00 94 L 10/24/19 07:57 98.9 F 66 16 140/103 H 94 L Weight Weight 183 lb 1.6 oz Most Recent Monitor Data Heart Rate from ECG 114 NIBP 163/96 NIBP BP-Mean 118 Respiration from ECG 28 SpO2 93 I&O: 10/23/19 10/24/19 10/25/19 06:59 06:59 06:59 Intake Total 990 Output Total 400 400 Balance 590 -400 Result Diagrams: 10/24/19 05:06 10/24/19 05:06 Additional Labs: Accuchecks 10/24/19 10/24/19 10/23/19 10:45 05:25 20:51 POC Glucose 271 H 237 H 245 H 10/23/19 16:41 POC Glucose 172 H Hospitalist ROS - Review of Systems Constitutional: denies: fever, chills - Medication Medications: Active Medications Generic Name Dose Route Start Last Admin Trade Name Freq PRN Reason Stop Dose Admin Amlodipine Besylate 5 mg 10/23/19 09:00 10/24/19 09:41 Norvasc PO 5 mg BID GEOVANNI Administration Aspirin 81 mg 10/23/19 09:00 10/24/19 09:41 Ecotrin PO 81 mg DAILY GEOVANNI Administration Atorvastatin Calcium 10 mg 10/22/19 21:00 10/23/19 21:19 Lipitor PO 10 mg HS GEOVANNI Administration Carvedilol 50 mg 10/23/19 17:00 10/24/19 09:40 Coreg PO 50 mg BID-WM GEOVANNI Administration Insulin Human Lispro 0 units 10/21/19 18:44 10/24/19 12:18 Humalog SC 4 unit .MILD SLIDING SCALE PRN Administration Mild Correctional Scale Insulin Human Lispro 0 units 10/22/19 21:02 10/23/19 21:20 Humalog SC 2 unit .BEDTIME SLIDING SC PRN Administration Bedtime Correctional Scale Labetalol HCl 10 mg 10/21/19 18:59 10/22/19 20:45 Normodyne SLOW IVP 10 mg Q10MIN PRN Administration SBP > 180 or DBP > 105 Polyethylene Glycol 17 gm 10/23/19 15:57 10/23/19 17:06 Miralax PO 17 gm DAILYPRN PRN Administration Constipation Senna/Docusate Sodium 1 tab 10/23/19 21:00 10/24/19 09:41 Senokot S PO 1 tab BID GEOVANNI Administration Terazosin HCl 5 mg 10/22/19 21:00 10/23/19 21:19 Hytrin PO 5 mg HS GEOVANNI Administration - Exam General Appearance: NAD, awake alert Eye: PERRL, anicteric sclera ENT: normocephalic atraumatic, no oropharyngeal lesions Neck: no JVD Heart: RRR, no murmur, no gallops, no rubs, normal peripheral pulses Respiratory: CTAB, no wheezes, no rales, no ronchi Gastrointestinal: soft, non-tender, non-distended, normal bowel sounds Extremities: no cyanosis, no clubbing, no edema Skin: normal turgor, no lesions, no rashes Neurological: cranial nerve grossly intact, normal sensation to touch, no new deficit Neurological - other findings: appears to have mild right visual field deficit. Musculoskeletal - other findings: 5/5 strength all four extremities Psychiatric: normal affect, normal behavior, A&O x 3 Hosp A/P - Plan MRI brain: right MCA infarct with petechial hemorrhage. Lacunar infarct left centrum semiovale. Acute cortical infarction right occipital cortex. Likely embolic Chest X ray 10/20: cardiomegaly and atherosclerosis with left basilar pleural and parenchymal opacity CTA: focal moderate weblike stenosis involving the distal M1 segment Chest X ray: cardiomegaly and atherosclerosis with left basilar and parenchymal opacity Renal US: bilateral renal cysts. CT head without contrast: subacute right MCA distribution infarct. Acute infarct left occipital lobe. 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 Was given TPA with improvement - MRI brain shows right MCA infarct with petechial hemorrhage, acute cortical infarction right occipital lobe and lacunar infarct. Repeat CT head 10/21 showed no hemorrhage - ECHO showed no thrombus. - started aspirin 81 mg daily. Started xarelto 20 mg daily today 10/23. Plan to repeat CT head in the am - patient has a bed at rehab, consider d/c tomorrow #Hypertensive emergency - patient is off nicardipine drip. Continue coreg 50 mg bid, d/c losartan due to worsening creatinine Acute Kidney Injury -resolved, creatinine down to 1.27 #Afib - new onset #Type II NSTEMI - hold any anticoagulation for now. Per neurology consider starting anticoagulation tomorrow - TSH low, free T4 and T3 normal - continue coreg Dysuria - improved - UA negative - oxybutynin increased to 10 mg bid by urology - also on terazosin Anemia - Hb 13.7, stable will monitor Type II Diabetes - insulin sliding scale. Will start 7 units lantus
[2019-10-24 17:29] LABS: Cardiolipin IgA Ab 4.5 APL-U/mL (<14 Negative); Cardiolipin IgG Ab 1.1 GPL-U/mL (<10 Negative); EliA APS New Method **** NEW METHOD ****
[2019-10-24] MEDS ORDERED: Insulin Glargine 7 UNITS in Pre-Filled Syringe 1 EACH SC SCH (21:00)
[2019-10-24] MEDS: Atorvastatin Calcium 10 MG TAB PO SCH (21:50)
[2019-10-24] MEDS: Terazosin HCl 5 MG CAP PO SCH (21:51)
[2019-10-25 05:18] LABS: Hemoglobin 14.7 g/dL (14.0-18.0); Mean Corpuscular HGB CONC 33.9 g/dL (32.0-36.0); Mean Corpuscular Volume 91.3 fL (78.0-98.0); Mean Platelet Volume 9.4 fL (7.4-10.4); Platelet Count 218 thou/uL (130-400); RBC Distribution Width 12.2 % (11.5-14.5); Red Blood Cell (RBC) Count 4.75 mill/uL (4.70-6.10); White Blood Cell (WBC) Count 9.1 thou/uL (4.8-10.8)
[2019-10-25 05:35] LABS: Anion Gap 15 mmol/L (10-20); BUN (Urea Nitrogen) 24 mg/dL (8.4-25.7); Calc. Creatinine Clearance 65 mL/min (70-130); Calcium 8.7 mg/dL (7.8-10.44); Carbon Dioxide 22 mmol/L (23-31); Chloride 103 mmol/L (98-107); Estimated GFR-MDRD 54; Glucose 225 mg/dL (80-115); Potassium 3.7 mmol/L (3.5-5.1); Sodium 136 mmol/L (136-145)
[2019-10-25 05:44] LABS: Band 4 % (5-11); Eosinophils 2 % (0-10); Lymphocytes 17 % (21-51); MDiff Complete? YES; Monocytes 5 % (0-10); Neutrophil 72 % (42-75)
[2019-10-25] MEDS: HumaLOG 300 UNITS/3 ML VIAL SC PRN ×2 (05:51→12:50)
[2019-10-25] MEDS ORDERED: Digoxin 0.25 MG TAB PO SCH (09:00)
[2019-10-25] MEDS ORDERED: Rivaroxaban 10 MG TAB PO SCH (09:00)
[2019-10-25] MEDS: Polyethylene Glycol 3350 17 GM Packet PO PRN (09:30)
[2019-10-25] MEDS: Carvedilol 25 MG TAB PO SCH (09:30)
[2019-10-25] MEDS: Amlodipine 5 MG TAB PO SCH (09:31)
[2019-10-25] MEDS: Senokot S 8.6-50 MG TAB PO SCH (09:31)
[2019-10-25] MEDS: Oxybutynin 5 MG TAB PO SCH (09:31)
[2019-10-25] MEDS: Aspirin 81 mg Enteric Coated Tablet PO SCH (09:31)
--- NOTE | 2019-10-25 09:44 | CT ---
CT HEAD WITHOUT CONTRAST: Indications: Follow up stroke. Comparison: 10-24-19 FINDINGS: The subacute infarct in the right frontal lobe and right MCA distribution seen on previous scan is ag ain noted. No significant change in the appearance or extent of this infarct. The infarct involving the left occipital lobe described yesterday has become more recent and circumsc ribed indicating expected evolution of this of subacute infarct. 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 Old lacunar infarct in the left periventricular white matter is again noted. No hemorrhage. 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 POS: AGW
[2019-10-25 11:54] VITALS: BP 137/77; TEMP 98.2
--- NOTE | 2019-10-25 21:22 | DIS ---
DATE OF ADMISSION: 10/21/2019 DATE OF DISCHARGE: 10/25/2019 DISCHARGE DIAGNOSES: 1. Acute embolic stroke in the right MCA and left occipital lobe region. 2. Hypertensive emergency. 3. Acute kidney injury. 4. Atrial fibrillation, new onset. 5. Type [address]-elevation myocardial infarction. 6. Dysuria and urinary incontinence. 7. Anemia. 8. Bilateral renal cysts CONSULTATIONS: Dr. Gogo Shah with Neurology, Dr. Varun Browning with Cardiology, Dr. Marshal Garcia with Urology. BRIEF HISTORY OF PRESENT ILLNESS: This is a 64-year-old male with a past medical history of BPH, diabetes, hypertension, who presented to the emergency room with slurred speech and left-sided arm weakness. The patient was ambulating when his daughter noticed that his speech was slurred and he was holding his left arm. He also reported frequent urination, having to pee every 15 minutes. When patient arrived to the emergency room, his BP was 210/140. He was noted to have a facial droop and left arm weakness. He was given tPA due to an NIH stroke scale of 12. He also had an TITUS with a creatinine of 1.58. He was initially admitted to the [facility]. HOSPITAL COURSE: 1. Acute embolic right MCA stroke and left occipital lobe embolic stroke: The patient had a CT scan of his head on admission, which was negative. His CTA showed web-like stenosis involving the distal M1 segment. The patient did receive tPA and his weakness and numbness on his left side improved. MRI of his brain showed a right MCA infarct with petechial hemorrhage and acute cortical infarction in the right occipital lobe and lacunar infarct. Echocardiogram showed no thrombus. Neurology was consulted and he was started on aspirin 81 mg daily 24 hours after he received tPA. On 10/22 he was noted to have some visual difficulties. Repeat CT scan of his head on the had shown a new acute infarct in the left occipital lobe. He was started on Xarelto for his atrial fibrillation after Neurology approval. Due to the patient's petechial hemorrhage on the MRI, there was initial concern of starting Xarelto due to fear of causing a hemorrhagic stroke. Repeat CT head on 10/24 showed no bleeding and no new infarcts. He will be discharged on xarelto and statin. The patient was seen by Physical Therapy and Occupational Therapy, and was thought to be a good candidate for rehab. He was discharged to [facility] rehab for further treatment. Hypertensive emergency: His blood pressure was initially managed with a nicardipine drip. He was eventually transitioned out of the ICU and was started on Coreg and losartan. His losartan, however, was discontinued due to acute kidney injury and he was switched to amlodipine 5 mg twice daily. Blood pressure remains controlled on coreg and amlodipine on discharge. 2. Atrial fibrillation, new onset/type [address]-elevation myocardial infarction : EKG on admission showed new onset atrial fibrillation. The patient did have a slightly elevated troponin on admission, which peaked up to 0.362 on the . ECHO on 10/21 showed no wall motion abnormalities. He was seen by Cardiology, Dr. Lui. He was started on Xarelto, as well as digoxin. His TSH was low and his free T4 and T3 were normal. Therefore, no concerns for hyperthyroidism. 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 Lui in a week. 3. Acute kidney injury: The patient did have a creatinine that initially worsened up to 1.91 after being started on losartan. This was discontinued and his creatinine improved to 1.33 on the day of discharge. His glipizide dose was reduced to 5 mg twice daily and he was resumed on his metformin on discharge. Consider repeat BMP in a week. 4. Urinary urge incontinence/dysuria: The patient had a UA that was negative for UTI on admission. He was supposed to have prostate surgery done this week. However, this was canceled due to his stroke. He was seen by Dr. Garcia, who increased his oxybutynin to 10 mg twice daily. He is also started on terazosin 5 mg at bedtime and was started on mirabegron 50 mg daily. He will follow up with Dr. Garcia within a month. 5. Type 2 diabetes: The patient had blood sugars of up to 200 in the hospital. He was started on Lantus while in the hospital. However, on discharge, he will be resumed on his metformin and his glipizide at a lower dose. DISCHARGE PHYSICAL EXAMINATION: VITAL SIGNS: Temperature 98.2, heart rate 60, respiratory rate 16, O2 saturation 94% on room air, and blood pressure 137/77. GENERAL: The patient is alert, awake, and oriented x3. NEURO: The patient refused detailed visual exam. However, he correctly guessed how many fingers I was holding out. He had 5/5 strength in his right upper and lower extremities. His left upper extremity and lower extremity appears to be 4 to 5/ 5. However, he did have poor effort due to fatigue. CVS: Irregular rate and rhythm. No murmurs, rubs, or gallops. LUNGS: Clear to auscultation bilaterally. ABDOMEN: Positive bowel sounds, soft, nontender, and nondistended. EXTREMITIES: No edema. PERTINENT LABORATORY DATA: CBC 10/24: Unremarkable. BMP 10/24: Creatinine is 1.33. LFTs: AST 14, ALT 22, alkaline phosphatase 65. Troponin I: 0.044, 0.033, 0.362. TSH: 0.1337. Free T3: 2.53. Free T4: 1.46. UA: Unremarkable. Anticardiolipin panel: Unremarkable. PERTINENT IMAGING: CT brain 10/20: Shows no acute disease. CTA of the brain 10/20: Shows focal moderate web-like stenosis involving the distal left M1 segment. Chest x-ray 10/20: Shows cardiomegaly, atherosclerosis with possible left basilar pleural and/or parenchymal opacity. Brain MRI 10/21: Shows recent infarction in the right MCA with associated petechial hemorrhage. Subacute lacunar infarction in the left centrum semiovale. Small foci of acute cortical infarction in the right occipital lobe. CT brain 10/21: No acute disease. Renal ultrasound 10/22: Shows bilateral renal cysts. No hydronephrosis. CT brain 10/23: Shows subacute right MCA infarct. Acute infarct in the left occipital lobe. 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 Echo 10/21: EF is 55% to 60%. Diastolic dysfunction. Mild MR. Moderate concentric LVH. DISCHARGE CONDITION: Stable. ACTIVITY: As tolerated. DIET: Heart healthy diet. DISCHARGE MEDICATIONS: 1. Amlodipine 5 mg p.o. b.i.d. 2. Atorvastatin 10 mg p.o. at bedtime. 3. Coreg 50 mg p.o. b.i.d. 4. Digoxin 0.25 mg p.o. daily. 5. Glipizide 5 mg p.o. b.i.d. 6. Mirabegron 50 mg p.o. daily. 7. Ditropan 10 mg p.o. b.i.d. 8. Xarelto 20 mg p.o. daily. 9. Terazosin 5 mg p.o. at bedtime. DISCHARGE INSTRUCTIONS: The patient to follow up with his PCP in a week. He should follow up with his belt loop machine operator within 1 to 2 weeks. He should start taking oxybutynin 10 mg twice daily. Take terazosin for bladder spasms and mirabegron 50 mg daily. His losartan was discontinued. Glipizide dose was reduced to 5 mg twice daily. Follow up with Dr. Garcia for rescheduling of his surgery. Job ID: [id number] MTDD
== END 2019-10-25 14:22 | DRG 61 ==
LOC: ERS 14:47 → CCU 15:55 → 2SE 10-22 17:14
PROVIDERS: ADMIT Internal Medicine; ATTEND Internal Medicine
DX: I63.411 Cerebral infarction due to embolism of right middle cerebral artery (principal); I21.A1 Myocardial infarction type 2; I16.1 Hypertensive emergency; G81.94 Hemiplegia, unspecified affecting left nondominant side; N17.9 Acute kidney failure, unspecified; R47.81 Slurred speech; R29.704 NIHSS score 4; R29.810 Facial weakness; I12.9 Hypertensive chronic kidney disease with stage 1 through stage 4 chronic kidney disease, or unspecified chronic kidney disease; N18.1 Chronic kidney disease, stage 1; I48.0 Paroxysmal atrial fibrillation; N40.0 Benign prostatic hyperplasia without lower urinary tract symptoms; R30.0 Dysuria; R32 Unspecified urinary incontinence; R40.2142 Coma scale, eyes open, spontaneous, at arrival to emergency department; E11.22 Type 2 diabetes mellitus with diabetic chronic kidney disease; D63.1 Anemia in chronic kidney disease; R40.2242 Coma scale, best verbal response, confused conversation, at arrival to emergency department; R40.2362 Coma scale, best motor response, obeys commands, at arrival to emergency department; Z87.891 Personal history of nicotine dependence; Z79.01 Long term (current) use of anticoagulants; Z79.4 Long term (current) use of insulin
CPT/HCPCS: 36415; 36416; 70450; 70496; 70498; 70551; 71045; 76770; 80048; 80053; 81015; 81240; 81241; 82550; 82553; 83090; 84439; 84443; 84481; 84484; 85007; 85025; 85027; 85240; 85300; 85303; 85305; 85307; 85379; 85598; 85610; 85730; 86147; 93005; 93010; 93306; 96361; 96365; 96367; 96375; 96376; 99292; J1815; J2997; J3490; Q9967

== ENCOUNTER 2019-11-16 00:52 | Emergency (ER) | payer MEDICARE, MEDICAID ==
[2019-11-16] MEDS ORDERED: Lidocaine Viscous Sol 2% 15 ml UD Cup ONE (01:27)
== END 2019-11-16 01:43 | disposition home or self-care (01) ==
LOC: ERS 00:52
DX: J02.9 Acute pharyngitis, unspecified (principal); E78.5 Hyperlipidemia, unspecified; E78.00 Pure hypercholesterolemia, unspecified; E11.9 Type 2 diabetes mellitus without complications; I10 Essential (primary) hypertension; Z86.73 Personal history of transient ischemic attack (TIA), and cerebral infarction without residual deficits; Z87.891 Personal history of nicotine dependence
CPT/HCPCS: 99282

== ENCOUNTER 2019-12-01 10:08 | Outpatient (CLI) | payer MEDICARE, MEDICAID ==
--- NOTE | 2019-12-01 11:59 | CT ---
EXAM: CT NECK SOFT TISSUE POST CONTRAST: HISTORY:Dysphagia. CVA in October. Difficulty clearing mucus out of his throat. Difficulty swallowing. COMPARISON:None CORRELATION:None FINDINGS: Brain parenchyma: No pathologic enhancement of the visualized brain parenchyma. Sinuses: Mucus retention cyst in the left maxillary sinus. Nasopharynx:Adequate aeration. No mucosal abnormality. Oral cavity:Aerodigestive tract is patent. No mucosal abnormality. Limited evaluation of the oral cav ity due to dental amalgam artifact. Midline fatty raphae of the tongue is preserved. Mass effect upon the posterior left oral cavity due to medial deviation of the left common carotid artery, international trade compliance manager al carotid artery and external carotid artery. Hypopharynx: No mucosal abnormality. Epiglottis has a normal caliber. Preepiglottic fat is preserved . Larynx: No mucosal abnormality. Paraspinal muscles: Symmetric attenuation of the paraspinal muscles and symmetric attenuation of the sternocleidomastoid muscles.. Parotid and salivary glands: Symmetric fatty attenuation of the parotid gland and submandibular gland s. Thyroid gland: Unremarkable. Spine: Vertebral body height is maintained. No fracture. No significant central canal stenosis or sig nificant neural foraminal narrowing. Limited evaluation due to technique. There is mass effect upon the aerodigestive tract at the C4-C5 disc space, C5 vertebral body, C5-C6 disc space, C6 vertebral tong dy, and the C6-C7 disc space due to prominent anterior osteophytes. Lymph nodes: No evidence of lymphadenopathy by size criteria Lung apices and upper mediastinum: No acute abnormality. IMPRESSION: 1. No evidence of a mucosal mass along the aerodigestive tract. 2. Extensive osteophyte formation from C4 through C6 as described above. There is presumed mass effec t upon the cervical esophagus. Esophagram may be beneficial. 3. Mass effect upon the posterior left oral cavity due to deviation of the left carotid artery as daniel cribed above. 4. Prior to performing the esophagram, evaluation with a speech pathologist may be beneficial, if it has not already been performed. Transcribed Date/Time: 12/01/2019 12:04 PM
== END 2019-12-01 10:09 | disposition home or self-care (01) ==
LOC: BICCT 10:08
PROVIDERS: ATTEND Otolaryngology Plastic Surgery within the Head & Neck
DX: R13.10 Dysphagia, unspecified (principal); M25.78 Osteophyte, vertebrae; K11.8 Other diseases of salivary glands
CPT/HCPCS: 70491; Q9967